=== PATIENT | male | born 1995 | race Two or more races ===

== ENCOUNTER 2025-01-21 09:50 | Emergency (ER) | payer MEDICAID, OTHER ==
[~2025-01-21] VITALS: Ht 175.3 cm; Wt 68.0 kg
[2025-01-21 10:06] VITALS: TEMP 97.8
[2025-01-21] MEDS ORDERED: KEP500T PO (10:10)
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
[2025-01-21] MEDS: levETIRAcetam 1000 mg/100ml 100 ML IV ONE (10:24)
[2025-01-21 10:45] VITALS: BP 150/53; PULSE 61; RESP 17; O2SAT 98
[2025-01-21 11:00] LABS: Chloride 101 mmol/L (98-107); Potassium 3.8 mmol/L (3.5-5.1); Sodium 137 mmol/L (136-145)
[2025-01-21 11:01] LABS: Anion Gap 19 (5-15)
[2025-01-21 11:02] LABS: Calcium 10.2 mg/dL (8.7-10.4)
[2025-01-21 11:05] LABS: Basophils # (auto) 0 10 ^3/uL (0-0.2); Eosinophils % (auto) 1.1 % (0.0-7.0); Hematocrit 43.9 % (41.0-53.0); Monocytes # (auto) 0.5 10 ^3/uL (0-1.3); Neutrophils # (auto) 2.3 10 ^3/uL (1.6-8.6); Red Cell Distribution Width 15.9 % (11.8-14.3)
[2025-01-21 11:06] LABS: BUN/Creatinine Ratio 7.3 (10.0-20.0); Blood Urea Nitrogen 9 mg/dL (9-23)
[2025-01-21 11:08] LABS: Basophils % (auto) 0.9 % (0.0-2.0); Eosinophils # (auto) 0 10 ^3/uL (0-0.8); Lymphocytes # (auto) 1.6 10 ^3/uL (0.4-5.4); Lymphocytes % (auto) 36.2 % (10.0-50.0); Mean Corpuscular Hemoglobin 24.2 pg (28.0-32.0); Mean Corpuscular Hgb Conc. 31.8 g/dL (32.0-36.0); Monocytes % (auto) 11.6 % (0.0-12.0); Neutrophils % (auto) 50.2 % (37.0-80.0); Nucleated Red Blood Cells % 1.6 %; Platelet Count (auto) 162 10^3/uL (140-450); Red Blood Cells 5.78 10^6/uL (4.5-5.90); White Blood Cell 4.5 10^3/uL (4.4-10.8)
[2025-01-21 11:10] LABS: Blood Alcohol < 3.0 mg/dL (<10); Carbon Dioxide 17 mmol/L (20-31); Glucose 148 mg/dL (74-106)
[2025-01-21] MEDS: HYDROcodone-ACET 10/325MG TAB PO ONE (11:26)
--- NOTE | 2025-01-22 13:36 | ECG ---
[facility] Test Date: 2025-01-21 Test Time: 10:19:29 Pat Name: JR STAPLES Department: ER Room: Gender: M Business Mgr: DR RODRIGUEZ: 1995 Requested By: CICI KING Order Number: [id number] Reading MD: Socrates Herman Measurements Intervals [place] Rate: 66 P: 71 MS: 124 QRS: 71 QRSD: 96 T: 67 QT: 445 QTc: 467 Interpretive Statements Sinus rhythm Electronically Signed On 01-25-2025 13:19:45 PDT by Socrates Herman Please click the below link to view image of tracing.
== END 2025-01-21 11:39 | disposition home or self-care (01) ==
LOC: ER 09:50
DX: G40.909 Epilepsy, unspecified, not intractable, without status epilepticus (principal); F17.210 Nicotine dependence, cigarettes, uncomplicated; Z79.899 Other long term (current) drug therapy
CPT/HCPCS: 36415; 80048; 80320; 82947; 85025; 93005; 96374; 99284; J1953